=== PATIENT | male | born 1960 | race Caucasian/White ===

== ENCOUNTER 2018-06-12 16:20 | Emergency (ER) | payer OTHER ==
[~2018-06-12] VITALS: Ht 172.7 cm; Wt 113.6 kg
[2018-06-12 16:29] VITALS: BP 138/90; Ht 172.7 cm; Wt 113.6 kg
== END 2018-06-12 20:02 | disposition left against medical advice (07) ==
LOC: D.ER 16:20
DX: R53.1 Weakness (principal); I10 Essential (primary) hypertension